=== PATIENT | female | born 1940 | race Caucasian/White ===

== ENCOUNTER 2017-05-30 17:03 | Inpatient (IN) | payer MEDICARE, MEDICAID ==
[~2017-05-30] VITALS: Ht 167.6 cm; Wt 72.7 kg
[~2017-05-30 17:03] MED LIST: CRAN200C PO; LISI-600 PO; METF500T PO; THIO50CA PO; TRAM50TA2 PO
[2017-05-30] MEDS ORDERED: normal saline 1000ml 1,000 ML IV ONE (18:10)
[2017-05-30] MEDS ORDERED: meclizine 12.5mg tablet PO ONE (18:10)
[2017-05-30] MEDS ORDERED: ondansetron/PF 4mg/2ml inj IV ONE (18:10)
[2017-05-30 19:08] LABS: BASOPHILS # (AUTO) 0.1 X10'3 (0-0.2); BASOPHILS % (AUTO) 0.7 % (0-1); EOSINOPHILS % (AUTO) 0 % (0-6); HEMATOCRIT 37.8 % (35.0-45.0); HEMOGLOBIN 13.2 g/dl (12.0-16.0); LYMPHOCYTES # (AUTO) 1.5 X10'3 (1.1-4.8); LYMPHOCYTES % (AUTO) 19.7 % (21-51); MEAN CORPUSCULAR HEMOGLOBIN 32.6 PG (27.0-31.0); MEAN CORPUSCULAR VOLUME 93.2 FL (78-98); MEAN PLATELET VOLUME 10.9 FL (7.4-10.4); MONOCYTES # (AUTO) 0.3 X10'3 (0-0.9); MONOCYTES % (AUTO) 3.7 % (2-12); NEUTROPHILS # (AUTO) 5.7 X10'3 (1.8-7.7); NEUTROPHILS % (AUTO) 75.9 % (42-75); PLATELET COUNT 169 X10'3 (140-440); RED BLOOD COUNT 4.06 X10'6 (4.20-5.60); WHITE BLOOD COUNT 7.5 X10'3 (4.5-11.0)
[2017-05-30 19:22] LABS: AMMONIA < 10 UMOL/L (11-32)
[2017-05-30 19:25] LABS: LACTIC SEPSIS 1.5 MMOL/L (0.4-2.0)
[2017-05-30 19:27] LABS: ALANINE AMINOTRANSFERASE 65 U/L (12-78); ALBUMIN/GLOBULIN RATIO 0.6 (1.1-1.5); ALKALINE PHOSPHATASE 238 IU/L (46-116); ANION GAP 7 (8-16); BILIRUBIN,TOTAL 1.1 MG/DL (0.1-1.0); BLOOD UREA NITROGEN 20 MG/DL (7-18); BUN/CREATININE RATIO 25.3 (6.6-38.0); CHLORIDE 102 MMOL/L (99-107); CREATININE 0.79 MG/DL (0.40-0.90); ETHANOL < 0.010 GM/DL (0.0-0.010); SODIUM 136 MMOL/L (135-145); TOTAL CARBON DIOXIDE 27.5 MMOL/L (24-32); TOTAL PROTEIN 8.3 G/DL (6.4-8.2); TROPONIN I < 0.04 NG/ML (0.0-0.05); eGFR 71 ML/MIN
[2017-05-30 19:28] LABS: ASPARTATE AMINO TRANSFERASE 70 U/L (10-37); GLUCOSE 184 MG/DL (70-104); POTASSIUM 5.4 MMOL/L (3.5-5.1)
[2017-05-30 19:56] LABS: CLARITY,URINE SLIGHTLY CLOUDY (Clear); COLOR,URINE YELLOW (Yellow); GLUCOSE, URINE NEGATIVE (Neg); KETONES,URINE TRACE mg/dl (Neg); LEUKOCYTE ESTERASE ,URINE NEGATIVE (Neg); NITRITES, URINE NEGATIVE (Neg); OCCULT BLOOD,URINE TRACE-INTACT (Neg); PROTEIN,URINE 30 mg/dl (Neg)
[2017-05-30 19:57] LABS: UA COLLECTION TYPE STRAIGHT CATH
[2017-05-30 20:04] LABS: URINE AMPHETAMINE SCREEN NEGATIVE (Neg); URINE BARBITUATE SCREEN NEGATIVE (Neg); URINE BENZODIAZEPINES SCREEN NEGATIVE (Neg); URINE CANNABINOID SCREEN NEGATIVE (Neg); URINE COCAINE SCREEN NEGATIVE (Neg); URINE METHADONE SCREEN NEGATIVE (Neg); URINE OPIATE SCREEN NEGATIVE (Neg); URINE PHENCYCLIDINE SCREEN NEGATIVE (Neg)
[2017-05-30 20:13] LABS: BACTERIA,URINE 4+ /HPF (Neg); RBC,URINE 0-2 /HPF (0-2); SQUAMOUS EPITHELIAL CELL,UR MODERATE /LPF (FEW); WBC,URINE 0-4 /HPF (0-4)
[2017-05-30] MEDS ORDERED: magnesium hydroxide 30ml (MOM) UD suspension PO PRN (21:05)
[2017-05-30] MEDS ORDERED: ondansetron/PF 4mg/2ml inj IV PRN (21:05)
[2017-05-30] MEDS ORDERED: dextrose ORAL solution 15 GM/59 ML bottle PO PRN ×2 (21:05)
[2017-05-30] MEDS ORDERED: glucagon, human recombinant 1mg kit SUBCUT PRN (21:05)
[2017-05-30] MEDS ORDERED: dextrose 50%-water 50ml dispensing syringe IV PRN ×2 (21:05)
[2017-05-30] MEDS ORDERED: MESSAGE TO PHARMACY PO ONE (21:05)
[2017-05-30] MEDS ORDERED: mag hydrox/Alum hydrox/simeth 30ml oral suspension PO PRN (21:05)
[2017-05-30] MEDS ORDERED: acetaminophen 325mg tablet PO PRN (21:05)
[2017-05-30 21:35] LABS: HEMOGLOBIN A1C 6.2 % (4.5-6.2)
[2017-05-30] MEDS: normal saline 1000ml 1,000 ML IV SCH (21:49)
[2017-05-30] MEDS: insulin glargine (Lantus) pen - multi-dose SQ SCH (22:10)
[2017-05-31 06:39] LABS: BASOPHILS % (AUTO) 0.5 % (0-1); EOSINOPHILS # (AUTO) 0.2 X10'3 (0-0.9); EOSINOPHILS % (AUTO) 2.4 % (0-6); HEMATOCRIT 37.6 % (35.0-45.0); LYMPHOCYTES # (AUTO) 3.3 X10'3 (1.1-4.8); MEAN CORPUSCULAR HEMOGLOBIN 32.4 PG (27.0-31.0); MEAN CORPUSCULAR HGB CONC 34.5 % (33.0-36.5); MEAN CORPUSCULAR VOLUME 93.7 FL (78-98); MEAN PLATELET VOLUME 10.4 FL (7.4-10.4); MONOCYTES # (AUTO) 0.6 X10'3 (0-0.9); MONOCYTES % (AUTO) 7.4 % (2-12); NEUTROPHILS # (AUTO) 4.3 X10'3 (1.8-7.7); NEUTROPHILS % (AUTO) 50.7 % (42-75); PLATELET COUNT 196 X10'3 (140-440); RED BLOOD COUNT 4.01 X10'6 (4.20-5.60); RED CELL DISTRIBUTION WIDTH 13.3 % (11.5-14.5); WHITE BLOOD COUNT 8.5 X10'3 (4.5-11.0)
[2017-05-31 07:00] VITALS: BP 155/62
[2017-05-31 07:26] LABS: ALANINE AMINOTRANSFERASE 57 U/L (12-78); ALBUMIN 2.8 G/DL (3.4-5.0); ALBUMIN/GLOBULIN RATIO 0.6 (1.1-1.5); ALKALINE PHOSPHATASE 216 IU/L (46-116); ANION GAP 7 (8-16); ASPARTATE AMINO TRANSFERASE 44 U/L (10-37); BILIRUBIN,DIRECT 0.3 MG/DL (0-0.3); BILIRUBIN,TOTAL 0.9 MG/DL (0.1-1.0); BLOOD UREA NITROGEN 16 MG/DL (7-18); BUN/CREATININE RATIO 20.3 (6.6-38.0); CALCIUM 8.9 MG/DL (8.5-10.1); CHLORIDE 110 MMOL/L (99-107); CHOL/HDL RATIO 4.1 (0.00-4.99); CHOLESTEROL 214 MG/DL (0-200); CREATININE 0.79 MG/DL (0.40-0.90); GLUCOSE 87 MG/DL (70-104); HDL CHOLESTEROL 52 MG/DL (35-60); LDL CHOLESTEROL 131 MG/DL (50-100); POTASSIUM 4.1 MMOL/L (3.5-5.1); SODIUM 142 MMOL/L (135-145); TOTAL PROTEIN 7.8 G/DL (6.4-8.2); TRIGLYCERIDES 111 MG/DL (20-135); eGFR 71 ML/MIN
[2017-05-31] MEDS: losartan 50mg tablet PO SCH (08:00)
[2017-05-31] MEDS ORDERED: ALPHA LIPOIC ACID 50 MG PO SCH (08:00)
[2017-05-31] MEDS: meclizine 12.5mg tablet PO PRN ×2 (09:14→18:52)
[2017-05-31] MEDS: aspirin 81mg tablet.DR PO SCH (09:15)
[2017-05-31 10:00] VITALS: BP 132/69
[2017-05-31] MEDS: normal saline 1000ml 1,000 ML IV SCH ×2 (11:19→16:37)
[2017-05-31] MEDS ORDERED: cloNIDine 0.1 mg tablet PO PRN (17:45)
[2017-05-31 18:00] VITALS: BP 175/64
[2017-05-31] MEDS ORDERED: losartan 25mg tablet PO ONE (18:00)
[2017-05-31 23:00] VITALS: BP 154/58
[2017-06-01 06:00] VITALS: BP 163/57
[2017-06-01 06:37] LABS: BASOPHILS # (AUTO) 0.1 X10'3 (0-0.2); BASOPHILS % (AUTO) 0.8 % (0-1); EOSINOPHILS # (AUTO) 0.3 X10'3 (0-0.9); EOSINOPHILS % (AUTO) 3.6 % (0-6); HEMOGLOBIN 12.1 g/dl (12.0-16.0); LYMPHOCYTES # (AUTO) 3.1 X10'3 (1.1-4.8); LYMPHOCYTES % (AUTO) 42.5 % (21-51); MEAN CORPUSCULAR HEMOGLOBIN 32.5 PG (27.0-31.0); MEAN CORPUSCULAR HGB CONC 34.5 % (33.0-36.5); MEAN CORPUSCULAR VOLUME 94.2 FL (78-98); MEAN PLATELET VOLUME 10.7 FL (7.4-10.4); MONOCYTES # (AUTO) 0.5 X10'3 (0-0.9); MONOCYTES % (AUTO) 6.5 % (2-12); NEUTROPHILS # (AUTO) 3.4 X10'3 (1.8-7.7); NEUTROPHILS % (AUTO) 46.6 % (42-75); PLATELET COUNT 127 X10'3 (140-440); RED BLOOD COUNT 3.72 X10'6 (4.20-5.60); RED CELL DISTRIBUTION WIDTH 13.1 % (11.5-14.5); WHITE BLOOD COUNT 7.2 X10'3 (4.5-11.0)
[2017-06-01 06:44] LABS: ALBUMIN 2.7 G/DL (3.4-5.0); ANION GAP 8 (8-16); BLOOD UREA NITROGEN 16 MG/DL (7-18); BUN/CREATININE RATIO 20.8 (6.6-38.0); CALCIUM 8.8 MG/DL (8.5-10.1); CHLORIDE 109 MMOL/L (99-107); CREATININE 0.77 MG/DL (0.40-0.90); GLUCOSE 158 MG/DL (70-104); POTASSIUM 4.1 MMOL/L (3.5-5.1); SODIUM 142 MMOL/L (135-145); TOTAL CARBON DIOXIDE 24.6 MMOL/L (24-32); eGFR 73 ML/MIN
[2017-06-01] MEDS: normal saline 1000ml 1,000 ML IV SCH (07:16)
[2017-06-01] MEDS: aspirin 81mg tablet.DR PO SCH (08:45)
[2017-06-01] MEDS: losartan 50mg tablet PO SCH (08:45)
[2017-06-01] MEDS: meclizine 12.5mg tablet PO PRN (08:45)
[2017-06-01 10:00] VITALS: BP 135/60
[2017-06-01] MEDS: insulin Lispro (HumaLOG) vial - multi-dose SQ SCH ×2 (14:31→19:31)
[2017-06-01 16:00] VITALS: BP 129/93
[2017-06-01 18:00] VITALS: BP 141/54
[2017-06-01] MEDS: insulin glargine (Lantus) pen - multi-dose SQ SCH (21:00)
[2017-06-01 22:00] VITALS: BP 148/56
[2017-06-01] MEDS ORDERED: levoFLOXACIN-Levaquin 500mg/D5 100 ML IV SCH (22:00)
[2017-06-02] MEDS: normal saline 1000ml 1,000 ML IV SCH ×2 (02:04→20:38)
[2017-06-02 05:44] LABS: BASOPHILS # (AUTO) 0.1 X10'3 (0-0.2); BASOPHILS % (AUTO) 0.6 % (0-1); EOSINOPHILS % (AUTO) 0 % (0-6); HEMATOCRIT 34.5 % (35.0-45.0); LYMPHOCYTES # (AUTO) 2.9 X10'3 (1.1-4.8); LYMPHOCYTES % (AUTO) 36.3 % (21-51); MEAN CORPUSCULAR HEMOGLOBIN 32.4 PG (27.0-31.0); MEAN CORPUSCULAR HGB CONC 34.7 % (33.0-36.5); MEAN CORPUSCULAR VOLUME 93.4 FL (78-98); MEAN PLATELET VOLUME 9.5 FL (7.4-10.4); MONOCYTES # (AUTO) 0.7 X10'3 (0-0.9); MONOCYTES % (AUTO) 8.2 % (2-12); NEUTROPHILS # (AUTO) 4.4 X10'3 (1.8-7.7); NEUTROPHILS % (AUTO) 54.9 % (42-75); PLATELET COUNT 152 X10'3 (140-440); RED BLOOD COUNT 3.69 X10'6 (4.20-5.60); RED CELL DISTRIBUTION WIDTH 13.3 % (11.5-14.5)
[2017-06-02 06:00] VITALS: BP 151/54
[2017-06-02 06:10] LABS: ALBUMIN 2.5 G/DL (3.4-5.0); ANION GAP 10 (8-16); BLOOD UREA NITROGEN 17 MG/DL (7-18); BUN/CREATININE RATIO 23.6 (6.6-38.0); CALCIUM 8.6 MG/DL (8.5-10.1); CHLORIDE 110 MMOL/L (99-107); CREATININE 0.72 MG/DL (0.40-0.90); POTASSIUM 4.1 MMOL/L (3.5-5.1); SODIUM 143 MMOL/L (135-145); eGFR 79 ML/MIN
[2017-06-02 06:11] LABS: GLUCOSE 140 MG/DL (70-104)
[2017-06-02] MEDS: aspirin 81mg tablet.DR PO SCH (08:14)
[2017-06-02] MEDS: losartan 50mg tablet PO SCH (08:14)
[2017-06-02] MEDS: insulin Lispro (HumaLOG) vial - multi-dose SQ SCH ×3 (09:25→19:02)
[2017-06-02 10:00] VITALS: BP 123/46
[2017-06-02] MEDS: meclizine 12.5mg tablet PO PRN (12:24)
[2017-06-02 18:00] VITALS: BP 155/64
[2017-06-02] MEDS: insulin glargine (Lantus) pen - multi-dose SQ SCH (21:00)
[2017-06-02 22:00] VITALS: BP 166/67
[2017-06-02] MEDS: levoFLOXACIN-Levaquin 500mg/D5 100 ML IV SCH (22:26)
[2017-06-03 05:29] LABS: BASOPHILS % (AUTO) 0.7 % (0-1); EOSINOPHILS # (AUTO) 0.2 X10'3 (0-0.9); EOSINOPHILS % (AUTO) 3.6 % (0-6); HEMATOCRIT 33.4 % (35.0-45.0); HEMOGLOBIN 11.5 g/dl (12.0-16.0); LYMPHOCYTES # (AUTO) 2.4 X10'3 (1.1-4.8); LYMPHOCYTES % (AUTO) 35.8 % (21-51); MEAN CORPUSCULAR HEMOGLOBIN 32.5 PG (27.0-31.0); MEAN CORPUSCULAR HGB CONC 34.4 % (33.0-36.5); MEAN CORPUSCULAR VOLUME 94.4 FL (78-98); MEAN PLATELET VOLUME 10.2 FL (7.4-10.4); MONOCYTES # (AUTO) 0.5 X10'3 (0-0.9); MONOCYTES % (AUTO) 7.6 % (2-12); NEUTROPHILS # (AUTO) 3.5 X10'3 (1.8-7.7); NEUTROPHILS % (AUTO) 52.3 % (42-75); PLATELET COUNT 150 X10'3 (140-440); RED BLOOD COUNT 3.54 X10'6 (4.20-5.60); RED CELL DISTRIBUTION WIDTH 12.7 % (11.5-14.5); WHITE BLOOD COUNT 6.7 X10'3 (4.5-11.0)
[2017-06-03 05:55] LABS: ALBUMIN 2.4 G/DL (3.4-5.0); ANION GAP 9 (8-16); BLOOD UREA NITROGEN 18 MG/DL (7-18); BUN/CREATININE RATIO 23.7 (6.6-38.0); CALCIUM 8.5 MG/DL (8.5-10.1); CHLORIDE 109 MMOL/L (99-107); CREATININE 0.76 MG/DL (0.40-0.90); POTASSIUM 4.2 MMOL/L (3.5-5.1); SODIUM 142 MMOL/L (135-145); eGFR 74 ML/MIN
[2017-06-03 06:01] LABS: GLUCOSE 163 MG/DL (70-104)
[2017-06-03] MEDS: losartan 50mg tablet PO SCH (08:49)
[2017-06-03] MEDS: aspirin 81mg tablet.DR PO SCH (08:49)
[2017-06-03] MEDS: insulin Lispro (HumaLOG) vial - multi-dose SQ SCH ×2 (08:50→19:01)
[2017-06-03] MEDS: normal saline 1000ml 1,000 ML IV SCH (09:18)
[2017-06-03 10:00] VITALS: BP 158/46
[2017-06-03 18:00] VITALS: BP 129/87
[2017-06-03 21:00] VITALS: BP 127/41
[2017-06-03] MEDS: levoFLOXACIN-Levaquin 500mg/D5 100 ML IV SCH (21:01)
[2017-06-03] MEDS: insulin glargine (Lantus) pen - multi-dose SQ SCH (21:10)
[2017-06-04] MEDS: normal saline 1000ml 1,000 ML IV SCH (03:46)
[2017-06-04 06:00] VITALS: BP 159/50
[2017-06-04 06:08] LABS: BASOPHILS % (AUTO) 0.5 % (0-1); EOSINOPHILS # (AUTO) 0.3 X10'3 (0-0.9); EOSINOPHILS % (AUTO) 3.6 % (0-6); HEMATOCRIT 33.1 % (35.0-45.0); HEMOGLOBIN 11.7 g/dl (12.0-16.0); LYMPHOCYTES # (AUTO) 3.1 X10'3 (1.1-4.8); LYMPHOCYTES % (AUTO) 35.9 % (21-51); MEAN CORPUSCULAR HEMOGLOBIN 33.6 PG (27.0-31.0); MEAN CORPUSCULAR HGB CONC 35.4 % (33.0-36.5); MEAN PLATELET VOLUME 10.8 FL (7.4-10.4); MONOCYTES # (AUTO) 0.7 X10'3 (0-0.9); MONOCYTES % (AUTO) 8.3 % (2-12); NEUTROPHILS # (AUTO) 4.4 X10'3 (1.8-7.7); NEUTROPHILS % (AUTO) 51.7 % (42-75); PLATELET COUNT 175 X10'3 (140-440); RED BLOOD COUNT 3.48 X10'6 (4.20-5.60); RED CELL DISTRIBUTION WIDTH 12.3 % (11.5-14.5); WHITE BLOOD COUNT 8.5 X10'3 (4.5-11.0)
[2017-06-04 06:24] LABS: ANION GAP 8 (8-16); BLOOD UREA NITROGEN 18 MG/DL (7-18); CHLORIDE 110 MMOL/L (99-107); CREATININE 0.83 MG/DL (0.40-0.90); GLUCOSE 135 MG/DL (70-104); SODIUM 142 MMOL/L (135-145); TOTAL CARBON DIOXIDE 23.9 MMOL/L (24-32)
[2017-06-04 06:25] LABS: ALBUMIN 2.5 G/DL (3.4-5.0); BUN/CREATININE RATIO 21.7 (6.6-38.0); CALCIUM 8.7 MG/DL (8.5-10.1); eGFR 67 ML/MIN
[2017-06-04 07:10] VITALS: BP 143/68
[2017-06-04] MEDS: aspirin 81mg tablet.DR PO SCH (07:11)
[2017-06-04] MEDS: losartan 50mg tablet PO SCH (07:11)
[2017-06-04] MEDS: insulin Lispro (HumaLOG) vial - multi-dose SQ SCH ×2 (08:36→14:19)
== END 2017-06-04 15:10 | DRG 149 ==
LOC: ER 17:04 → ED HOLD 21:01 → ORTHO 4S 05-31 06:50
PROVIDERS: ADMIT Family Medicine; ATTEND Internal Medicine
DX: R42 Dizziness and giddiness (principal); E11.42 Type 2 diabetes mellitus with diabetic polyneuropathy; E87.5 Hyperkalemia; I10 Essential (primary) hypertension; Z86.73 Personal history of transient ischemic attack (TIA), and cerebral infarction without residual deficits; Z86.79 Personal history of other diseases of the circulatory system; Z98.82 Breast implant status; Z88.0 Allergy status to penicillin; Z88.5 Allergy status to narcotic agent; Z88.6 Allergy status to analgesic agent; Z88.8 Allergy status to other drugs, medicaments and biological substances
CPT/HCPCS: 36415; 70450; 80048; 80053; 80061; 80076; 80305; 80320; 81001; 82140; 82948; 83036; 83605; 84484; 85025; 87070; 87077; 87088; 87186; 92616; 93306; 93880; 96361; 96374; 97110; 97161; 97530; 99285; J1815; J1956; J2405; J7030; J8597